=== PATIENT | female | born 1955 | race African-American/Black ===

== ENCOUNTER 2023-04-28 13:42 | Emergency (ER) | payer OTHER, MEDICAID ==
[~2023-04-28] VITALS: Ht 165.1 cm; Wt 90.7 kg
[~2023-04-28 13:42] MED LIST: FERR-57 PO; SER100 PO
[2023-04-28 13:56] VITALS: BP_SYST 141; PULSE 79; RESP 22; TEMP 98.6
[2023-04-28 14:32] LABS: COVID19 ANTIGEN SOFIA FIA NEGATIVE (NEGATIVE)
[2023-04-28 14:33] LABS: INFLUENZA TYPE A Negative (NEGATIVE); INFLUENZA TYPE B NEGATIVE (NEGATIVE)
[2023-04-28] MEDS ORDERED: IPRATROPIUM BROM 0.5 MG/2.5 ML VIAL.NEB (ATROVENT) INH ONE (16:45)
[2023-04-28] MEDS ORDERED: guaiFENesin/DEXTROMETHORPHAN 10 ML UDC PO ONE (16:45)
[2023-04-28] MEDS ORDERED: ALBUTEROL SULFATE 0.083% 2.5 MG/3 ML VIAL.NEB INH ONE (16:45)
[2023-04-28] MEDS ORDERED: ZIT250 PO (17:58)
[2023-04-28] MEDS ORDERED: GUAI5SYR PO (17:58)
[2023-04-28] MEDS ORDERED: AZITHROMYCIN 250 MG TABLET PO ONE (18:00)
[2023-04-28 18:12] VITALS: BP_SYST 141; PULSE 79; RESP 22; TEMP 98.6; O2SAT 97
== END 2023-04-28 18:12 | disposition home or self-care (01) ==
LOC: SED 13:42
DX: J40 Bronchitis, not specified as acute or chronic (principal); R05.9 Cough, unspecified; R09.81 Nasal congestion; K21.9 Gastro-esophageal reflux disease without esophagitis; I10 Essential (primary) hypertension; Z79.899 Other long term (current) drug therapy; Z20.822 Contact with and (suspected) exposure to COVID-19
CPT/HCPCS: 99283; 87426; 36415; 94640; 87804 ×2; Q0144

== ENCOUNTER 2023-06-24 15:37 | Emergency (ER) | payer OTHER, MEDICAID ==
[~2023-06-24] VITALS: Ht 165.1 cm; Wt 90.7 kg
[~2023-06-24 15:37] MED LIST changes: +GUAI5SYR PO; +ZIT250 PO
[2023-06-24 15:51] VITALS: BP_SYST 121; PULSE 69; RESP 18; TEMP 97.3; O2SAT 98
[2023-06-24 19:38] VITALS: BP_SYST 116; PULSE 72; RESP 19; TEMP 97.3; O2SAT 98
== END 2023-06-24 19:38 | disposition home or self-care (01) ==
LOC: SED 15:37
DX: R60.0 Localized edema (principal); J45.909 Unspecified asthma, uncomplicated; K21.9 Gastro-esophageal reflux disease without esophagitis; I10 Essential (primary) hypertension; Z79.899 Other long term (current) drug therapy
CPT/HCPCS: 93971; 99284